=== PATIENT | male | born 1955 | race Caucasian/White ===

== ENCOUNTER 2016-11-10 14:00 | Emergency (ER) | payer BC ==
[~2016-11-10] VITALS: Ht 181.6 cm; Wt 108.4 kg
[~2016-11-10 14:00] MED LIST: ASPEC81 PO; BENA20TA14 PO; CLB200 PO; CLR10 PO; HYDC25 PO; OXYSR10 PO; RXC5 PO
[2016-11-10 14:06] VITALS: TEMP 36.7; Ht 181.6 cm; Wt 108.4 kg
[2016-11-10] MEDS ORDERED: ASPIRIN 81 MG CHEW PO STA (14:17)
--- NOTE | 2016-11-10 14:20 | EMERGENCY ROOM VISIT NOTE ---
History Report prepared by Bernard: Luc Morataya Under the Supervision of: Dr. Satish Treviño M.D. First contact with patient: 14:10 Chief Complaint: CHEST PAIN Stated Complaint: CHEST PAINS, SWEATS, STUFFY FEELING History of Present Illness The patient is a 61 year old male who presents to the Emergency Room with complaints of persistent chest pain that started less than one hour [employer]. The pain came on suddenly when he was getting out of his car. The pain is localized to the center of his chest and does not radiate. The pain is severe and is worsened with movement. He was completely asymptomatic prior to the pain. The patient also complains of diaphoresis and some shortness of breath. He denies recent fevers, headaches, syncope or lightheadedness, nausea, vomiting, blood in his stools, or leg pain. He never had chest pain like this before. He has been keeping up with fluids. The patient denies any history of heart disease or diabetes. He does have history of hypertension and high cholesterol. The patient denies any recent falls or injuries. He is a smoker. He denies any recent illness. Source of History: patient Onset: one hour [employer] Position: chest Symptom Intensity: severe Timing: other (persistent) Modifying Factors (Worsening): movement Associated Symptoms: + SOB, + diaphoresis, No diarrhea, No fevers, No headache, No hematochezia, No vomiting Review of Systems See HPI for pertinent positives & negatives. A total of 10 systems reviewed and were otherwise negative. Past Medical & Surgical Medical Problems: (1) Arthritis of left knee Old medical records were reviewed. Nurse's notes were reviewed and I agree with. Family History No pertinent family history Social History Smoking Status: Current Every Day Smoker Drug Use: none Marital Status: Housing Status: lives with family Current/Historical Medications Scheduled Benazepril (Lotensin), 20 MG PO QAM Fluticasone Propionate (Nasal) (Flonase Allergy Relief), 2 SPRAY DANICA DAILY Hydrochlorothiazide (Hctz), 1 TAB PO DAILY Montelukast Sod (Montelukast Sodium), 10 MG PO DAILY Allergies Coded Allergies: No Known Allergies (Verified , 11/10/16) Physical Exam Vital Signs Date Time Temp Pulse Resp B/P Pulse Ox O2 Delivery O2 Flow Rate FiO2 11/10/16 16:33 73 18 142/91 95 Room Air 11/10/16 15:46 74 18 146/87 95 Room Air 11/10/16 14:20 Room Air 11/10/16 14:06 36.7 100 18 138/90 96 Room Air Physical Exam General: non ill-appearing middle aged male in no acute distress, breathing comfortably on room air. Normal speech HEENT: Normal cephalic atraumatic. Pupils are equal round and reactive to light. Sclera anicteric. Extraocular movements are intact. Oropharynx is pink with moist mucous membranes. No swelling of the mouth lips or tongue. Neck: Supple with a midline trachea. No meningeal signs or stiffness, no JVD or bruits. No Stridor. Chest: Clear to auscultation bilaterally. No wheezes or rhonchi. No increased work of breathing. Mildly reproducibly tender to the lower sternum. Heart: regular rate and rhythm. Abdomen: Soft nontender, nondistended without rebound guarding or rigidity. Extremities: No cyanosis clubbing or edema. No calf tenderness or assymetry Spine/Back. Non tender to palpation. No CVA tenderness Skin: Good turgor without rashes. Neurologic exam: Cranial nerves two through 12 are intact. Motor and sensation are intact and symmetrical throughout. Medical Decision & Procedures ER Provider Diagnostic Interpretation: Radiology results as stated below per my review and radiologist interpretation: CT ANGIOGRAPHY OF THE CHEST, PULMONARY EMBOLUS PROTOCOL CLINICAL HISTORY: Midsternal chest pain. COMPARISON STUDY: Chest radiograph June 11, 2014 and November 10, 2016. TECHNIQUE: Following IV administration of 94 mL of Optiray-320, helical axial images of the chest were obtained utilizing the pulmonary embolus protocol. Maximal intensity projections and sagittal and coronal reformats were viewed on an independent 3D workstation. IV contrast was administered without complication. CT DOSE: 680.19 mGy.cm FINDINGS: No pulmonary emboli are identified although the segmental and subsegmental pulmonary arteries are suboptimally assessed due to respiratory motion. The heart is mildly enlarged. There is no pericardial effusion. There are no enlarged thoracic lymph nodes. Mild groundglass opacities within the lungs are noted. There is mild emphysema. Bony thorax and upper abdomen are unremarkable with the exception of nonvisualization of the left kidney within the upper to mid abdomen. A few suspected hepatic cysts are noted. IMPRESSION: 1. No pulmonary emboli identified although segmental and subsegmental pulmonary arteries suboptimal assessed due to respiratory motion. 2. Mild cardiomegaly. 3. Mild emphysema. 4. Mild ground glass opacities which favor atelectasis. Electronically signed by: Selvin Gates M.D. 11/10/2016 4:01 PM Dictated Date/Time: 11/10/2016 3:52 PM CHEST ONE VIEW PORTABLE CLINICAL HISTORY: Chest pain. COMPARISON STUDY: Chest radiograph June 11, 2014. FINDINGS: An anterior cervical spine fusion is incidentally noted. Lung volumes are normal. There is no consolidation or evidence of pulmonary edema. Cardiac size is at the upper limits of normal. IMPRESSION: No acute cardiopulmonary findings. Electronically signed by: Selvin Gates M.D. 11/10/2016 2:56 PM Dictated Date/Time: 11/10/2016 2:56 PM Laboratory Results 11/10/16 14:31 Red Blood Count 5.12, Mean Corpuscular Volume 93.8, Mean Corpuscular Hemoglobin 32.4, Mean Corpuscular Hemoglobin Concent 34.6, Mean Platelet Volume 11.3, Neutrophils (%) (Auto) 59.7, Lymphocytes (%) (Auto) 31.8, Monocytes (%) (Auto) 7.2, Eosinophils (%) (Auto) 0.8, Basophils (%) (Auto) 0.4, Neutrophils # (Auto) 5.57, Lymphocytes # (Auto) 2.97, Monocytes # (Auto) 0.67, Eosinophils # (Auto) 0.07, Basophils # (Auto) 0.04 11/10/16 14:31 Test 11/10/16 14:31 11/10/16 14:36 White Blood Count 9.33 K/uL (4.8-10.8) Red Blood Count 5.12 M/uL (4.7-6.1) Hemoglobin 16.6 g/dL (14.0-18.0) Hematocrit 48.0 % (42-52) Mean Corpuscular Volume 93.8 fL (80-100) Mean Corpuscular Hemoglobin 32.4 pg (25-34) Mean Corpuscular Hemoglobin Concent 34.6 g/dl (32-36) Platelet Count 183 K/uL (130-400) Mean Platelet Volume 11.3 fL (7.4-10.4) Neutrophils (%) (Auto) 59.7 % Lymphocytes (%) (Auto) 31.8 % Monocytes (%) (Auto) 7.2 % Eosinophils (%) (Auto) 0.8 % Basophils (%) (Auto) 0.4 % Neutrophils # (Auto) 5.57 K/uL (1.4-6.5) Lymphocytes # (Auto) 2.97 K/uL (1.2-3.4) Monocytes # (Auto) 0.67 K/uL (0.11-0.59) Eosinophils # (Auto) 0.07 K/uL (0-0.5) Basophils # (Auto) 0.04 K/uL (0-0.2) RDW Standard Deviation 45.8 fL (36.4-46.3) RDW Coefficient of Variation 13.2 % (11.5-14.5) Immature Granulocyte % (Auto) 0.1 % Immature Granulocyte # (Auto) 0.01 K/uL (0.00-0.02) Anion Gap 7.0 mmol/L (3-11) Est Creatinine Clear Calc Drug Dose 103.1 ml/min Estimated GFR () 99.7 Estimated GFR (Non- 86.1 BUN/Creatinine Ratio 16.8 (10-20) Calcium Level 8.8 mg/dl (8.5-10.1) Total Bilirubin 0.5 mg/dl (0.2-1) Direct Bilirubin 0.2 mg/dl (0-0.2) Aspartate Amino Transf (AST/SGOT) 17 U/L (15-37) Alanine Aminotransferase (ALT/SGPT) 37 U/L (12-78) Alkaline Phosphatase 72 U/L (45-117) Total Creatine Kinase 235 U/L (39-308) Creatine Kinase MB 2.8 ng/ml (0.5-3.6) Creatine Kinase MB Ratio 1.2 (0-3.0) Total Protein 7.0 gm/dl (6.4-8.2) Albumin 4.0 gm/dl (3.4-5.0) Lipase 133 U/L (73-393) Bedside D-Dimer > 450 ng/mlFEU (0-450) Bedside Troponin I 0.000 ng/ml (0-0.045) Laboratory studies as stated above per my review. Medications Administered Medications (Trade) Dose Ordered Sig/Adia Route Start Time Stop Time Status Last Admin Dose Admin Aspirin (Aspirin Chew) 324 mg NOW STAT PO 11/10/16 14:17 11/10/16 14:19 DC 11/10/16 14:38 324 MG ECG Indication: chest pain Rate (beats per minute): 74 Rhythm: normal sinus Findings: PVC (occasional), no acute ischemic change Change: Repeat EKG showed normal sinus at 74, no acute ischemic changes, occasional PVC , no significant change from first EKG. ED Course 1412: Past medical records reviewed. The patient was evaluated in room B3b, and a complete history and physical examination were performed. 1417: Aspirin 324 mg PO. 1555: The patient is resting comfortably. Repeat EKG ordered. 1625: The patient is asymptomatic and would like to go home. I offered admission however he would still like to go home. He will follow up with his primary physician. Medical Decision Differential diagnosis includes acute coronary syndrome, arrhythmia, PE, aortic pathology, musculoskeletal, GI. This patient comes in after an abrupt onset of chest pain when opening a door. It is reproducible pain and movement. IV access established and EKG was obtained. EKG does not suggest acute coronary syndrome or arrhythmias given aspirin 324 mg by mouth. Multiple blood testing was obtained. A second EKG does not show any change compared to the first. He does have some PVCs. He is asymptomatic with these however. He was feeling much better and had no further chest pain. His troponin and CK-MB are normal. His d-dimer was mildly elevated and in light of this. I did do a chest CT does no evidence of PE. He has nothing to suggest congestive heart failure, pneumonia, or pneumothorax. He has no acute electrolyte or metabolic abnormality. This may be musculoskeletal and it is reproducible in one area in the central sternum and is worse with movement and breathing. I went over his results with the patient and his . I told him that I cannot 100% rule out cardiac event and offered to admit him for further workup and rule out but he strongly desires to go home. I think it is reasonable with close follow-up with his doctor this week. I encouraged him use aspirin 324 mg daily and take with food return to ER if: increasing pain, worsening of symptoms, recurrence of systems, any new problems or concerns. He was happy with the plan and discharged to home. Impression Primary Impression: Substernal precordial chest pain Scribe Attestation The scribe's documentation has been prepared under my direction and personally reviewed by me in its entirety. I confirm that the note above accurately reflects all work, treatment, procedures, and medical decision making performed by me. Departure Information Dispostion Home / Self-Care Referrals Lupillo Dugan M.D.(CHARLENE) (PCP) Forms HOME CARE DOCUMENTATION FORM, IMPORTANT VISIT INFORMATION Patient Instructions My [facility] Additional Instructions Rest. Drink plenty of fluids. Use an aspirin 325 mg enteric coated once a day. Follow-up with your doctor on Saturday for recheck. Return to ER over the weekend if: Recurrence of symptoms, worsening symptoms, shortness of breath, fever chills, any new problems or concerns.
[2016-11-10] MEDS ORDERED: HYDR12.56 PO (14:51)
[2016-11-10] MEDS ORDERED: SNG10 PO (14:51)
[2016-11-10] MEDS ORDERED: FLUT0.15 NAE (14:51)
[2016-11-10 14:54] LABS: BASO % 0.4 %; BASO ABS # 0.04 K/uL (0-0.2); COMPLETE YES; EOS % 0.8 %; IG% 0.1 %; LYMPH % 31.8 %; LYMPH ABS # 2.97 K/uL (1.2-3.4); MEAN CELL VOLUME 93.8 fL (80-100); MEAN CORPUSCULAR HEMOGLOBIN 32.4 pg (25-34); MEAN CORPUSCULAR HGB CONC 34.6 g/dl (32-36); MEAN PLATELET VOLUME 11.3 fL (7.4-10.4); MONO % 7.2 %; NEUT % 59.7 %; PLATELET COUNT 183 K/uL (130-400); RED BLOOD COUNT 5.12 M/uL (4.7-6.1); WHITE BLOOD COUNT 9.33 K/uL (4.8-10.8)
--- NOTE | 2016-11-10 14:58 | DIAGNOSTIC IMAGING REPORT ---
CHEST ONE VIEW PORTABLE CLINICAL HISTORY: Chest pain. COMPARISON STUDY: Chest radiograph June 11, 2014. FINDINGS: An anterior cervical spine fusion is incidentally noted. Lung volumes are normal. There is no consolidation or evidence of pulmonary edema. Cardiac size is at the upper limits of normal. IMPRESSION: No acute cardiopulmonary findings. Electronically signed by: Selvin Gates M.D. 11/10/2016 2:56 PM Dictated Date/Time: 11/10/2016 2:56 PM
[2016-11-10 15:01] LABS: BUN/CREATININE RATIO 16.8 (10-20); CALCIUM 8.8 mg/dl (8.5-10.1); CREATININE 0.95 mg/dl (0.60-1.40); POTASSIUM 3.9 mmol/L (3.5-5.1)
[2016-11-10 15:06] LABS: CKMB/CK RATIO 1.2 (0-3.0)
[2016-11-10] MEDS ORDERED: OPTIRAY 320 IV PRN (15:15)
--- NOTE | 2016-11-10 16:02 | DIAGNOSTIC IMAGING REPORT ---
CT ANGIOGRAPHY OF THE CHEST, PULMONARY EMBOLUS PROTOCOL CLINICAL HISTORY: Midsternal chest pain. COMPARISON STUDY: Chest radiograph June 11, 2014 and November 10, 2016. TECHNIQUE: Following IV administration of 94 mL of Optiray-320, helical axial images of the chest were obtained utilizing the pulmonary embolus protocol. Maximal intensity projections and sagittal and coronal reformats were viewed on an independent 3D workstation. IV contrast was administered without complication. CT DOSE: 680.19 mGy.cm FINDINGS: No pulmonary emboli are identified although the segmental and subsegmental pulmonary arteries are suboptimally assessed due to respiratory motion. The heart is mildly enlarged. There is no pericardial effusion. There are no enlarged thoracic lymph nodes. Mild groundglass opacities within the lungs are noted. There is mild emphysema. Bony thorax and upper abdomen are unremarkable with the exception of nonvisualization of the left kidney within the upper to mid abdomen. A few suspected hepatic cysts are noted. IMPRESSION: 1. No pulmonary emboli identified although segmental and subsegmental pulmonary arteries suboptimal assessed due to respiratory motion. 2. Mild cardiomegaly. 3. Mild emphysema. 4. Mild ground glass opacities which favor atelectasis. Electronically signed by: Selvin Gates M.D. 11/10/2016 4:01 PM Dictated Date/Time: 11/10/2016 3:52 PM
[2016-11-10 16:33] VITALS: BP 142/91; PULSE 73; O2SAT 95
[2017-04-16] MEDS ORDERED: ACET500T57 PO (14:54)
== END 2016-11-10 16:34 | disposition home or self-care (01) ==
LOC: C.EDB 14:02
DX: R07.2 Precordial pain (principal); I10 Essential (primary) hypertension; E78.00 Pure hypercholesterolemia, unspecified; F17.210 Nicotine dependence, cigarettes, uncomplicated; Z79.899 Other long term (current) drug therapy

== ENCOUNTER 2017-04-15 19:46 | Inpatient (IN) | payer BC ==
[~2017-04-15] VITALS: Ht 182.9 cm; Wt 106.0 kg
[~2017-04-15 19:46] MED LIST changes: -ASPEC81 PO; -CLB200 PO; -CLR10 PO; +FLUT0.15 NAE; -HYDC25 PO; +HYDR12.56 PO; -OXYSR10 PO; -RXC5 PO; +SNG10 PO
[2017-04-15] MEDS ORDERED: MoRPHine SULFATE 4 MG/ML 1 ML CARP\\VIAL IV PRN (20:00)
[2017-04-15] MEDS ORDERED: SODIUM CHLORIDE 0.9% 1000ML 1,000 ML IV STA (20:00)
[2017-04-15] MEDS ORDERED: KETOROLAC TROMETHAMINE 30 MG/ML VIAL IV STA (20:00)
[2017-04-15] MEDS ORDERED: SODIUM CHLORIDE 0.9% 1000ML 500 ML IV STA (20:00)
[2017-04-15] MEDS ORDERED: ONDANSETRON INJ 2 MG/ML 2 ML VIAL IV STA (20:00)
--- NOTE | 2017-04-15 20:11 | EMERGENCY ROOM VISIT NOTE ---
History Report prepared by Bernard: Raul Giraldo Under the Supervision of: Dr. Mejia Espinal M.D. First contact with patient: 19:54 Chief Complaint: FEVER Stated Complaint: FEVER, STOMACH PAIN History of Present Illness The patient is a 62 year old male who presents to the Emergency Room with complaints of worsening upper abdominal pain for the past week. The patient states that he felt fine when he woke up this morning, and it severely worsened around 1000. He currently rates his discomfort as an 8/10 in severity. The patient additionally states that he is having urinary frequency, fever, and right sided back pain after moving earlier and pulling his muscle. He states that he currently feels bloated. The patient denies any nausea, vomiting, diarrhea, or history of diverticulitis. The patient states that eating makes the pain worse, and he states that he has never had pain like this before. He states that he takes blood pressure medication, though he does not take any blood thinners. The patient states that the only abdominal surgery he has had is a hernia repair. Source of History: patient Onset: a week ago Position: abdomen Symptom Intensity: 8/10 Timing: worsening Associated Symptoms: + fevers, + back pain, + urinary symptoms, No nausea, No vomiting, No diarrhea Review of Systems See HPI for pertinent positives & negatives. A total of 10 systems reviewed and were otherwise negative. Past Medical & Surgical Medical Problems: (1) Arthritis of left knee Family History No pertinent family history Social History Smoking Status: Current Every Day Smoker Drug Use: none Marital Status: Housing Status: lives with family Current/Historical Medications Scheduled Benazepril (Lotensin), 20 MG PO QAM Hydrochlorothiazide (Hctz), 1 TAB PO DAILY Montelukast Sod (Montelukast Sodium), 10 MG PO DAILY Scheduled PRN Ibuprofen (Advil), 200-600 MG PO Q4H PRN for Pain or Fever Allergies Coded Allergies: No Known Allergies (Verified , 04/15/17) Physical Exam Vital Signs Date Time Temp Pulse Resp B/P (MAP) Pulse Ox O2 Delivery O2 Flow Rate FiO2 04/15/17 21:55 86 20 157/86 96 Room Air 04/15/17 19:47 37.0 95 20 165/108 94 Room Air Physical Exam GENERAL: Patient is in no acute distress. HEENT: No acute trauma, normocephalic atraumatic, mucous membranes moist, no nasal congestion, no scleral icterus. NECK: No stridor, no adenopathy, no meningismus, trachea is midline. LUNGS: Clear to auscultation bilaterally, no wheeze, no rhonchi, breath sounds equal. HEART: Without murmurs gallops or rubs, regular rate and rhythm. ABDOMEN: Tenderness along the entire right side mostly in the right lower quadrant. Mildly tender in the left lower quadrant. Soft, bowel sounds positive , no hernias, no peritonitis. EXTREMITIES: No cyanosis or edema, full range of motion of all the joints without pain or difficulty, no signs for acute trauma. NEUROLOGIC: Oriented x 3, no acute motor or sensory deficits, no focal weakness. SKIN: No rash, no jaundice, no diaphoresis. Medical Decision & Procedures ER Provider Diagnostic Interpretation: Radiology results as stated below per my review and radiologist interpretation: CHEST ONE VIEW PORTABLE HISTORY: 62 years-old Male ABDOMINAL PAIN/GI acute generalized abdominal pain with fever. COMPARISON: Chest radiograph 11/10/2016 TECHNIQUE: Portable upright AP view of the chest FINDINGS: Calcific granuloma of the right midlung is again seen. Cardiac silhouette is upper limits of normal. There is atherosclerosis of the aorta without pneumothorax or pleural effusion. Subsegmental linear left basilar opacity is noted with mild blunting of left costophrenic angle. No pneumothorax. Fusion hardware the lower cervical spine is noted. IMPRESSION: Subsegmental left basilar opacity with blunting of the costophrenic angle suggests atelectasis or pneumonia, possibly with trace effusion. The above report was generated using voice recognition software. It may contain grammatical, syntax or spelling errors. Electronically signed by: James Manzo M.D. 04/15/2017 8:30 PM Dictated Date/Time: 04/15/2017 8:29 PM ABD/PELVIS IV AND ORAL CONT HISTORY: 62 years-old Male ABDOMINAL PAIN/GI--?APPY--GIVE PO AND IV CONTRAST acute generalized abdominal pain. Initial exam. COMPARISON: CTA chest 11/10/2016 TECHNIQUE: Multiple axial CT images of the abdomen and pelvis were obtained following the intravenous administration of 92 mL Optiray 320. Oral contrast was also used. A dose lowering technique was used consistent with the principals of MORGAN. FINDINGS: Mild dependent bibasilar opacities suggest atelectasis. No pneumoperitoneum. Imaged inferior cardiac chambers are unremarkable. Low attenuating 2.3 cm circumscribed lesion of the left hepatic lobe suggests cysts with additional scattered similar appearing subcentimeter lesions too small to characterize however also likely reflecting cysts. The spleen and gallbladder are unremarkable. Moderate interstitial edema involves the pancreas, notably within the region of the pancreatic head and neck with mild surrounding stranding seen within the anterior perirenal space which tracks along the duodenum. Mild wall thickening of the proximal duodenum is seen, likely reactive. No associated focal fluid collections. No biliary ductal dilation or focal mass. Bilateral adrenal glands are unremarkable. Right kidney is unremarkable. There is mild stranding surrounding the distal right ureter which is mildly dilated without obstructing stone or mass. Prostate is enlarged. Urinary bladder is within normal limits. Left inguinal hernia is seen. Left kidney is noted within a midline pelvic location with left ureter inserting normally the urinary bladder. There is moderate atherosclerotic plaquing of the abdominal aorta. Fusiform dilation involves the bilateral external iliac arteries, 2.0 cm in the low right and 2.4 cm on the left. Mild luba hepatis adenopathy is seen measuring up to 3.4 x 1.4 cm. Mildly prominent gastrohepatic lymph nodes are also seen measuring up to 1.1 cm. There is no bowel obstruction. The appendix appears normal. Soft tissues are unremarkable. Bones are intact. Intervertebral disc space narrowing noted at L4-L5 and L5-S1. IMPRESSION: 1. Findings compatible with mild acute interstitial edematous pancreatitis. There is mild associated edema within the anterior pararenal space without associated focal fluid collection. Correlate with lipase level. 2. No biliary ductal dilation. 3. 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 4. Mild dilation of the distal right ureter with surrounding inflammatory stranding is nonspecific and may reflect ascending ureteritis. Correlate with urinalysis. 5. Prostamegaly. 6. Normal appendix. The above report was generated using voice recognition software. It may contain grammatical, syntax or spelling errors. Electronically signed by: James Manzo M.D. 04/15/2017 10:36 PM Dictated Date/Time: 04/15/2017 10:26 PM Laboratory Results 04/15/17 20:30 Red Blood Count 5.15, Mean Corpuscular Volume 91.8, Mean Corpuscular Hemoglobin 31.1, Mean Corpuscular Hemoglobin Concent 33.8, Mean Platelet Volume 10.9, Neutrophils (%) (Auto) 70.0, Lymphocytes (%) (Auto) 20.6, Monocytes (%) (Auto) 6.4, Eosinophils (%) (Auto) 2.4, Basophils (%) (Auto) 0.3, Neutrophils # (Auto) 7.19, Lymphocytes # (Auto) 2.12, Monocytes # (Auto) 0.66, Eosinophils # (Auto) 0.25, Basophils # (Auto) 0.03 04/15/17 20:30 Test 04/15/17 20:30 04/15/17 21:55 White Blood Count 10.28 K/uL (4.8-10.8) Red Blood Count 5.15 M/uL (4.7-6.1) Hemoglobin 16.0 g/dL (14.0-18.0) Hematocrit 47.3 % (42-52) Mean Corpuscular Volume 91.8 fL (80-100) Mean Corpuscular Hemoglobin 31.1 pg (25-34) Mean Corpuscular Hemoglobin Concent 33.8 g/dl (32-36) Platelet Count 166 K/uL (130-400) Mean Platelet Volume 10.9 fL (7.4-10.4) Neutrophils (%) (Auto) 70.0 % Lymphocytes (%) (Auto) 20.6 % Monocytes (%) (Auto) 6.4 % Eosinophils (%) (Auto) 2.4 % Basophils (%) (Auto) 0.3 % Neutrophils # (Auto) 7.19 K/uL (1.4-6.5) Lymphocytes # (Auto) 2.12 K/uL (1.2-3.4) Monocytes # (Auto) 0.66 K/uL (0.11-0.59) Eosinophils # (Auto) 0.25 K/uL (0-0.5) Basophils # (Auto) 0.03 K/uL (0-0.2) RDW Standard Deviation 44.9 fL (36.4-46.3) RDW Coefficient of Variation 13.4 % (11.5-14.5) Immature Granulocyte % (Auto) 0.3 % Immature Granulocyte # (Auto) 0.03 K/uL (0.00-0.02) Prothrombin Time 10.0 SECONDS (9.0-12.0) Prothromb Time International Ratio 0.9 (0.9-1.1) Activated Partial Thromboplast Time 26.2 SECONDS (21.0-31.0) Partial Thromboplastin Ratio 1.0 Anion Gap 6.0 mmol/L (3-11) Est Creatinine Clear Calc Drug Dose 108.2 ml/min Estimated GFR () 106.2 Estimated GFR (Non- 91.6 BUN/Creatinine Ratio 17.3 (10-20) Calcium Level 9.5 mg/dl (8.5-10.1) Total Bilirubin 0.2 mg/dl (0.2-1) Aspartate Amino Transf (AST/SGOT) 14 U/L (15-37) Alanine Aminotransferase (ALT/SGPT) 21 U/L (12-78) Alkaline Phosphatase 70 U/L (45-117) Total Protein 6.6 gm/dl (6.4-8.2) Albumin 3.5 gm/dl (3.4-5.0) Globulin 3.1 gm/dl (2.5-4.0) Albumin/Globulin Ratio 1.1 (0.9-2) Lipase 4046 U/L (73-393) Urine Color YELLOW Urine Appearance CLEAR (CLEAR) Urine pH 7.5 (4.5-7.5) Urine Specific [place] 1.013 (1.000-1.030) Urine Protein NEG (NEG) Urine Glucose (UA) NEG (NEG) Urine Ketones NEG (NEG) Urine Occult Blood NEG (NEG) Urine Nitrite NEG (NEG) Urine Bilirubin NEG (NEG) Urine Urobilinogen NEG (NEG) Urine Leukocyte Esterase NEG (NEG) Laboratory results reviewed by me. Medications Administered Medications (Trade) Dose Ordered Sig/Adia Route Start Time Stop Time Status Last Admin Dose Admin Sodium Chloride 500 ml @ 999 mls/hr Q31M STAT IV 04/15/17 20:00 04/15/17 20:30 DC 04/15/17 20:36 999 MLS/HR Ondansetron HCl (Zofran Inj) 4 mg NOW STAT IV 04/15/17 20:00 04/15/17 20:02 DC 04/15/17 20:36 4 MG Sodium Chloride 1,000 ml @ 125 mls/hr Q8H STAT IV 04/15/17 20:00 04/16/17 03:59 04/15/17 20:36 125 MLS/HR Morphine Sulfate (MoRPHine SULFATE INJ) 4 mg Q30M PRN IV 04/15/17 20:00 04/29/17 19:59 04/15/17 20:39 4 MG Ketorolac Tromethamine (Toradol Inj) 30 mg NOW STAT IV 04/15/17 20:00 04/15/17 20:02 DC 04/15/17 20:36 30 MG Nicotine (Nicoderm Cq 21MG Patch) 1 patch NOW STAT EXT 04/15/17 22:52 04/15/17 22:53 DC 04/15/17 23:10 1 PATCH ED Course 1953: The patient was evaluated in room A10. A complete history and physical exam was performed. 1999: Toradol Inj 30mg IV, Morphine Sulfate 4mg IV, Sodium Chloride 1000 ml @ 125 mls/hr IV, Zofran Inj 4mg IV, Sodium Chloride 500 ml @ 999 mls/hr IV 2251: I reevaluated the patient, and he admitted to heavy alcohol use. Also, I ordered Nicotine 1 Patch EXT 2256: Discussed the patient's case with Dr. Mcintyre. The patient will be evaluated for further management. Medical Decision Differential Diagnoses include: appendicitis, diverticulitis, pancreatitis, biliary colic, acute cholecystitis, UTI, viral illness, urinary infection, hernia, musculoskeletal pain. There is no leukocytosis or concerning anemia. No significant electrolyte abnormality, no kidney failure. There is no hepatitis. There is elevation to the lipase consistent with pancreatitis. Urinalysis does not show infection or hematuria. Chest x-ray does not show free air. There is some left base atelectasis. No pneumothorax. There is no coagulopathy. Abdominal and pelvis CT shows pancreatitis. The appendix was normal. There was some inflammation about the right kidney of unknown significance. The patient received IV saline, he received IV morphine, IV Toradol and IV Zofran. He was given a Nicotine patch. Patient is resting comfortably. I discussed my findings with him. I talked with case management. Admission/observation is warranted. The on-call hospitalist was consulted. Of note, the patient did admit to me that he drinks alcohol heavily, this is likely the cause of his pancreatitis. Medication Reconcilliation Current Medication List: was personally reviewed by me Blood Pressure Screening Patient's blood pressure: Elevated blood pressure Monitored by the hospitalist Consults Time Called: 2251 Consulting Physician: Dr. Mcintyre Returned Call: [phone] Discussed the patient's case with Dr. Mcintyre. The patient will be evaluated for further management. Impression Primary Impression: Pancreatitis Scribe Attestation The scribe's documentation has been prepared under my direction and personally reviewed by me in its entirety. I confirm that the note above accurately reflects all work, treatment, procedures, and medical decision making performed by me. Departure Information Dispostion Being Evaluated By Hospitalist Referrals No Doctor, Assigned (PCP) Patient Instructions My [facility]
[2017-04-15] MEDS ORDERED: OPTIRAY 320 IV PRN (20:15)
[2017-04-15] MEDS ORDERED: IBUP-1050 PO (20:23)
--- NOTE | 2017-04-15 20:31 | DIAGNOSTIC IMAGING REPORT ---
CHEST ONE VIEW PORTABLE HISTORY: 62 years-old Male ABDOMINAL PAIN/GI acute generalized abdominal pain with fever. COMPARISON: Chest radiograph 11/10/2016 TECHNIQUE: Portable upright AP view of the chest FINDINGS: Calcific granuloma of the right midlung is again seen. Cardiac silhouette is upper limits of normal. There is atherosclerosis of the aorta without pneumothorax or pleural effusion. Subsegmental linear left basilar opacity is noted with mild blunting of left costophrenic angle. No pneumothorax. Fusion hardware the lower cervical spine is noted. IMPRESSION: Subsegmental left basilar opacity with blunting of the costophrenic angle suggests atelectasis or pneumonia, possibly with trace effusion. The above report was generated using voice recognition software. It may contain grammatical, syntax or spelling errors. Electronically signed by: James Manzo M.D. 04/15/2017 8:30 PM Dictated Date/Time: 04/15/2017 8:29 PM
[2017-04-15 20:48] LABS: BASO % 0.3 %; BASO ABS # 0.03 K/uL (0-0.2); COMPLETE YES; EOS % 2.4 %; HEMATOCRIT 47.3 % (42-52); IG% 0.3 %; LYMPH % 20.6 %; LYMPH ABS # 2.12 K/uL (1.2-3.4); MEAN CELL VOLUME 91.8 fL (80-100); MEAN CORPUSCULAR HEMOGLOBIN 31.1 pg (25-34); MEAN CORPUSCULAR HGB CONC 33.8 g/dl (32-36); MEAN PLATELET VOLUME 10.9 fL (7.4-10.4); MONO % 6.4 %; PLATELET COUNT 166 K/uL (130-400); RED BLOOD COUNT 5.15 M/uL (4.7-6.1); WHITE BLOOD COUNT 10.28 K/uL (4.8-10.8)
[2017-04-15 20:58] LABS: INR 0.9 (0.9-1.1)
[2017-04-15 21:04] LABS: BUN/CREATININE RATIO 17.3 (10-20); CALCIUM 9.5 mg/dl (8.5-10.1); CREATININE 0.89 mg/dl (0.60-1.40); POTASSIUM 3.8 mmol/L (3.5-5.1)
[2017-04-15 21:07] LABS: ALB/GLOB RATIO 1.1 (0.9-2)
[2017-04-15 22:02] LABS: URINE APPEARANCE CLEAR (CLEAR); URINE BILIRUBIN NEG (NEG); URINE COLOR YELLOW; URINE NITRITE NEG (NEG); URINE PH 7.5 (4.5-7.5); URINE SPECIFIC GRAVITY 1.013 (1.000-1.030); UROBILINOGEN NEG (NEG); ZZUR CULT IF INDIC CLEAN CATCH NO
[2017-04-15 22:05] LABS: MANUAL MICROSCOPIC REQUIRED? NO; REVIEW REQ? NO
--- NOTE | 2017-04-15 22:37 | DIAGNOSTIC IMAGING REPORT ---
ABD/PELVIS IV AND ORAL CONT HISTORY: 62 years-old Male ABDOMINAL PAIN/GI--?APPY--GIVE PO AND IV CONTRAST acute generalized abdominal pain. Initial exam. COMPARISON: CTA chest 11/10/2016 TECHNIQUE: Multiple axial CT images of the abdomen and pelvis were obtained following the intravenous administration of 92 mL Optiray 320. Oral contrast was also used. A dose lowering technique was used consistent with the principals of MORGAN. FINDINGS: Mild dependent bibasilar opacities suggest atelectasis. No pneumoperitoneum. Imaged inferior cardiac chambers are unremarkable. Low attenuating 2.3 cm circumscribed lesion of the left hepatic lobe suggests cysts with additional scattered similar appearing subcentimeter lesions too small to characterize however also likely reflecting cysts. The spleen and gallbladder are unremarkable. Moderate interstitial edema involves the pancreas, notably within the region of the pancreatic head and neck with mild surrounding stranding seen within the anterior perirenal space which tracks along the duodenum. Mild wall thickening of the proximal duodenum is seen, likely reactive. No associated focal fluid collections. No biliary ductal dilation or focal mass. Bilateral adrenal glands are unremarkable. Right kidney is unremarkable. There is mild stranding surrounding the distal right ureter which is mildly dilated without obstructing stone or mass. Prostate is enlarged. Urinary bladder is within normal limits. Left inguinal hernia is seen. Left kidney is noted within a midline pelvic location with left ureter inserting normally the urinary bladder. There is moderate atherosclerotic plaquing of the abdominal aorta. Fusiform dilation involves the bilateral external iliac arteries, 2.0 cm in the low right and 2.4 cm on the left. Mild luba hepatis adenopathy is seen measuring up to 3.4 x 1.4 cm. Mildly prominent gastrohepatic lymph nodes are also seen measuring up to 1.1 cm. There is no bowel obstruction. The appendix appears normal. Soft tissues are unremarkable. Bones are intact. Intervertebral disc space narrowing noted at L4-L5 and L5-S1. IMPRESSION: 1. Findings compatible with mild acute interstitial edematous pancreatitis. There is mild associated edema within the anterior pararenal space without associated focal fluid collection. Correlate with lipase level. 2. No biliary ductal dilation. 3. 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 4. Mild dilation of the distal right ureter with surrounding inflammatory stranding is nonspecific and may reflect ascending ureteritis. Correlate with urinalysis. 5. Prostamegaly. 6. Normal appendix. The above report was generated using voice recognition software. It may contain grammatical, syntax or spelling errors. Electronically signed by: James Manzo M.D. 04/15/2017 10:36 PM Dictated Date/Time: 04/15/2017 10:26 PM
[2017-04-15] MEDS ORDERED: NICOTINE 21 MG/24 HR TDSY EXT STA (22:52)
[2017-04-15 23:32] LABS: MAGNESIUM 2.3 mg/dl (1.8-2.4)
[2017-04-16] MEDS ORDERED: LORAZEPAM 2 MG/ML 1 ML VIAL IV PRN (01:00)
[2017-04-16] MEDS ORDERED: ONDANSETRON INJ 2 MG/ML 2 ML VIAL IV PRN (01:00)
[2017-04-16] MEDS ORDERED: MoRPHine SULFATE 4 MG/ML 1 ML CARP\\VIAL IV PRN (01:00)
[2017-04-16] MEDS ORDERED: THIAMINE HCL INJ 100 MG in SYRINGE 9 ML IV STA (01:04)
[2017-04-16] MEDS ORDERED: GABAPENTIN 600 MG TAB PO STA (01:36)
[2017-04-16] MEDS: LACTATED RINGER'S 1000ML 1,000 ML IV SCH ×4 (01:50→14:38)
[2017-04-16 02:10] VITALS: BP 146/81; PULSE 71; TEMP 36.7; O2SAT 93; Ht 182.9 cm; Wt 106.0 kg
[2017-04-16] MEDS: OXYCODONE/ACETAMINOPHEN 5-325 TAB PO PRN ×2 (02:12→11:13)
--- NOTE | 2017-04-16 03:58 | HISTORY & PHYSICAL EXAMINATION ---
DATE OF ADMISSION: 04/16/2017 PRIMARY CARE PHYSICIAN: Dr. Dugan. CHIEF COMPLAINT: Abdominal pain. HISTORY OF PRESENT ILLNESS: History obtained from patient and records. Significant for hypertension, ongoing tobacco abuse, arthritis. Recent confinement last July 2015 under Orthopedic service for the left knee surgery. One week history of epigastric discomfort, achy. No radiation, no nausea, no vomiting. Patient is urinating a lot. Admits to daily alcohol intake. dmits that sometimes his drinking can be excessive. No history of EtOH withdrawal in the past as per patient. MEDICAL HISTORY: As above. SURGERIES: Orthopedic procedures, carpal tunnel surgery, hernia surgery, ear surgery, sinus surgery, and knee surgery. HOME MEDICATIONS: Include, celecoxib, fluticasone, benazepril, ALLERGIES: TO PAROXETINE. FAMILY HISTORY: Diabetes. PERSONAL AND SOCIAL HISTORY: A pack daily. Daily alcohol intake beverage, sometimes it is excessive. 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 REVIEW OF SYSTEMS: As per HPI, all other ROS negative. PHYSICAL EXAMINATION: VITAL SIGNS: Blood pressure was noted to be 165/90, later 140/82, pulse is 70, RR 18, T 37 sats 93 on room air. GENERAL: Noted to be obese, slightly uncomfortable, in no acute respiratory distress. SKIN: Normal color. HEENT: [place] palpebral conjunctivae. Dry mucosa. NECK: Short neck. CHEST: Clear to auscultation. ABDOMEN: Some distention. No overt tenderness. EXTREMITIES: No edema. No tenderness NEUROLOGIC: No gross focality. LABORATORY DATA: Hemoglobin was noted to be 16, hematocrit 47.2, white cell count 11, platelets 166. Sodium 136, potassium 4.8, chloride 101, CO2 30, BUN 15, creatinine 0.8, glucose of 174. Lipase was 4046. IMAGING DATA: CT abdomen and pelvis showed interstitial edematous pancreatitis without associated focal fluid collection, no biliary ductal dilatation, prostatomegaly, normal appearing appendix. Chest x-ray, atelectasis. UA normal ASSESSMENT: 1. Acute pancreatitis likely secondary to alcohol abuse. 2. Hypertension, slightly elevated. 3. Ongoing tobacco abuse. 4. Hyperglycemia, rule out diabetes. PLAN: GMF Follow lipase, IV fluids, Analgesia, bowel rest. GI consult RE pancreatitis. DT precautions. Nicotine patch. Check hemoglobin A1c. DVT prophylaxis, Lovenox subQ. Full code. MTDD
[2017-04-16 05:00] VITALS: BP 150/100; PULSE 64; TEMP 36.5; O2SAT 91
[2017-04-16 06:29] LABS: ESTIMATED AVERAGE GLUCOSE 128 mg/dl; HA1C FLAG Normal (Normal)
[2017-04-16 07:03] VITALS: BP 164/106; PULSE 64; TEMP 36.6; O2SAT 94
[2017-04-16 07:11] LABS: BASO % 0.3 %; BASO ABS # 0.03 K/uL (0-0.2); COMPLETE YES; EOS % 2.7 %; HEMATOCRIT 45.2 % (42-52); IG% 0.3 %; LYMPH ABS # 2.33 K/uL (1.2-3.4); MEAN CELL VOLUME 91.7 fL (80-100); MEAN CORPUSCULAR HEMOGLOBIN 31.2 pg (25-34); MEAN CORPUSCULAR HGB CONC 34.1 g/dl (32-36); MEAN PLATELET VOLUME 10.6 fL (7.4-10.4); MONO % 7.7 %; PLATELET COUNT 141 K/uL (130-400); RED BLOOD COUNT 4.93 M/uL (4.7-6.1); WHITE BLOOD COUNT 8.95 K/uL (4.8-10.8)
--- NOTE | 2017-04-16 07:11 | DIAGNOSTIC IMAGING REPORT ---
ABDOMINAL ULTRASOUND, RIGHT UPPER QUADRANT HISTORY: Generalized abdominal pain.. COMPARISON: Abdomen and pelvis CT 04/15/2017. FINDINGS: Pancreas: Obscured by overlying bowel gas. Liver: A 2.5 cm septated cyst within the left hepatic lobe. The liver is echogenic consistent with fatty change. The liver is mildly enlarged measuring 21 cm in length. Gallbladder: No gallbladder wall thickening. No gallstones. The gallbladder is contracted. CBD: 4 mm. Right kidney: No hydronephrosis. IMPRESSION: 1. The pancreas is obscured by overlying bowel gas. 2. Hepatomegaly demonstrating fatty change. 3. A 2.5 cm septated cyst within the left hepatic lobe. 4. No gallbladder wall thickening. No gallstones. Electronically signed by: Familia Santillan M.D. 04/16/2017 7:10 AM Dictated Date/Time: 04/16/2017 7:08 AM
[2017-04-16] MEDS: GABAPENTIN 600MG Q6H DOSE PO SCH ×2 (07:38→14:38)
[2017-04-16 07:46] LABS: BUN/CREATININE RATIO 15.7 (10-20); CALCIUM 9.4 mg/dl (8.5-10.1); CREATININE 0.79 mg/dl (0.60-1.40); POTASSIUM 3.8 mmol/L (3.5-5.1)
[2017-04-16 07:49] LABS: ALB/GLOB RATIO 1.1 (0.9-2)
[2017-04-16] MEDS ORDERED: MULTIVITAMIN TAB PO SCH (08:00)
[2017-04-16] MEDS ORDERED: ENALAPRIL MALEATE 10 MG TAB PO SCH (08:00)
[2017-04-16] MEDS ORDERED: MONTELUKAST SOD 10 MG TAB PO SCH (08:00)
[2017-04-16] MEDS ORDERED: NICOTINE 21 MG/24 HR TDSY TD SCH (08:00)
[2017-04-16] MEDS ORDERED: ENOXAPARIN 40 MG/0.4 ML SYR SQ SCH (09:00)
[2017-04-16] MEDS ORDERED: ONDANSETRON 4MG OD TAB PO PRN (10:45)
--- NOTE | 2017-04-16 11:03 | Progress Note ---
Medicine Progress Note Date & Time of Visit: Apr 16, 2017 at 9:46. Subjective patient examined sitting up, breathing in room air, no acute distress, cooperative on exam, was also able to ambulate from bed to bathroom without assistance, no acute complaints, has been able to drink water and chew on ice cubes without vomiting Objective Last 8 Hrs Date Time Temp Pulse Resp B/P (MAP) Pulse Ox O2 Delivery O2 Flow Rate FiO2 04/16/17 08:00 Room Air 04/16/17 07:03 36.6 64 18 164/106 (125) 94 Room Air 04/16/17 05:00 36.5 64 18 150/100 (117) 91 Room Air Physical Exam: General-no acute distress, speaking comfortably on room air, ambulatory without assistance Eyes-extraocular movements intact, no jaundice, no changes in vision ENT-no oral or nasal exudates, no tongue fasciculations Neck- supple, no JVD Lungs- clear to auscultation bilaterally, no accessory muscle used Heart- regular rate and rhythm Abdomen- truncal obesity, nontender to palpation, + bowel sounds Extremities- strength 5/5 throughout, no tremors Neuro- AO x 3, no focal neurological deficits Laboratory Results: Last 24 Hours Test 04/15/17 20:30 04/15/17 21:55 04/16/17 06:45 White Blood Count 10.28 K/uL 8.95 K/uL Red Blood Count 5.15 M/uL 4.93 M/uL Hemoglobin 16.0 g/dL 15.4 g/dL Hematocrit 47.3 % 45.2 % Mean Corpuscular Volume 91.8 fL 91.7 fL Mean Corpuscular Hemoglobin 31.1 pg 31.2 pg Mean Corpuscular Hemoglobin Concent 33.8 g/dl 34.1 g/dl Platelet Count 166 K/uL 141 K/uL Mean Platelet Volume 10.9 fL 10.6 fL Neutrophils (%) (Auto) 70.0 % 63.0 % Lymphocytes (%) (Auto) 20.6 % 26.0 % Monocytes (%) (Auto) 6.4 % 7.7 % Eosinophils (%) (Auto) 2.4 % 2.7 % Basophils (%) (Auto) 0.3 % 0.3 % Neutrophils # (Auto) 7.19 K/uL 5.63 K/uL Lymphocytes # (Auto) 2.12 K/uL 2.33 K/uL Monocytes # (Auto) 0.66 K/uL 0.69 K/uL Eosinophils # (Auto) 0.25 K/uL 0.24 K/uL Basophils # (Auto) 0.03 K/uL 0.03 K/uL RDW Standard Deviation 44.9 fL 45.4 fL RDW Coefficient of Variation 13.4 % 13.6 % Immature Granulocyte % (Auto) 0.3 % 0.3 % Immature Granulocyte # (Auto) 0.03 K/uL 0.03 K/uL Prothrombin Time 10.0 SECONDS Prothromb Time International Ratio 0.9 Activated Partial Thromboplast Time 26.2 SECONDS Partial Thromboplastin Ratio 1.0 Sodium Level 137 mmol/L 140 mmol/L Potassium Level 3.8 mmol/L 3.8 mmol/L Chloride Level 101 mmol/L 104 mmol/L Carbon Dioxide Level 30 mmol/L 32 mmol/L Anion Gap 6.0 mmol/L 4.0 mmol/L Blood Urea Nitrogen 15 mg/dl 12 mg/dl Creatinine 0.89 mg/dl 0.79 mg/dl Est Creatinine Clear Calc Drug Dose 108.2 ml/min 122.0 ml/min Estimated GFR () 106.2 111.5 Estimated GFR (Non- 91.6 96.2 BUN/Creatinine Ratio 17.3 15.7 Random Glucose 174 mg/dl 97 mg/dl Estimated Average Glucose 128 mg/dl Hemoglobin A1c 6.1 % Calcium Level 9.5 mg/dl 9.4 mg/dl Magnesium Level 2.3 mg/dl Total Bilirubin 0.2 mg/dl 0.4 mg/dl Aspartate Amino Transf (AST/SGOT) 14 U/L 10 U/L Alanine Aminotransferase (ALT/SGPT) 21 U/L 19 U/L Alkaline Phosphatase 70 U/L 62 U/L Total Protein 6.6 gm/dl 6.3 gm/dl Albumin 3.5 gm/dl 3.3 gm/dl Globulin 3.1 gm/dl 3.0 gm/dl Albumin/Globulin Ratio 1.1 1.1 Lipase 4046 U/L 1760 U/L Urine Color YELLOW Urine Appearance CLEAR Urine pH 7.5 Urine Specific [place] 1.013 Urine Protein NEG Urine Glucose (UA) NEG Urine Ketones NEG Urine Occult Blood NEG Urine Nitrite NEG Urine Bilirubin NEG Urine Urobilinogen NEG Urine Leukocyte Esterase NEG Ethyl Alcohol mg/dL < 3.0 mg/dl Diagnostic Imaging: Ultrasound Gallbladder 1. The pancreas is obscured by overlying bowel gas. 2. Hepatomegaly demonstrating fatty change. 3. A 2.5 cm septated cyst within the left hepatic lobe. 4. No gallbladder wall thickening. No gallstones. Electronically signed by: Familia Santillan M.D. 04/16/2017 7:10 AM Dictated Date/Time: 04/16/2017 7:08 AM Assessment & Plan (1) Pancreatitis diagnosis of acute pancreatitis on imaging, and elevated lipase -lipase and wbc downtrending -patient afebrile -gallbladder ultrasound without evidence for gallstones -possibly etiology of pancreatitis from resolved gallstone vs etoh use -patient doing well overnight on pain medications, antiemetics and IV hydration , and able to drink water and swallow ice chips without exacerbating abdominal discomfort or have any vomiting -will advance diet to solid low fat diet, IV pain medications and antiemetics switched to PO -possible that patient may bed discharged later today if he is able to tolerate diet (2) Hypertension -patient on NIYAH inhibitor since admission -upon discharge, patient to continue home medication of benazepril -will restart patient back on home medication of HCTZ (3) Venous thromboembolism (VTE) prophylaxis provided on arrival DVT prophylaxis on Lovenox 40 mg daily while inpatient Discharge planning: home Current Inpatient Medications: Current Inpatient Medications Medications (Trade) Dose Ordered Sig/Adia Route Start Time Stop Time Status Last Admin Dose Admin Ioversol (Optiray 320) 100 ml UD PRN IV 04/15/17 20:15 04/19/17 20:14 Lactated Ringer's 1,000 ml @ 200 mls/hr Q5H IV 04/15/17 23:30 05/15/17 23:29 04/16/17 10:07 200 MLS/HR Enoxaparin Sodium (Lovenox Inj) 40 mg Q24H SQ 04/16/17 09:00 05/16/17 08:59 Lorazepam (Ativan Inj) PRN Dosing -Active Protocol Q1H PRN IV 04/16/17 01:00 05/16/17 00:59 Nicotine (Nicoderm Cq 21MG Patch) 1 patch QAM TD 04/16/17 08:00 05/16/17 08:59 04/16/17 07:39 1 PATCH Oxycodone/ Acetaminophen (Percocet 5-325mg Tab) 1 tab Q6H PRN PO 04/16/17 01:00 04/30/17 00:59 04/16/17 02:12 1 TAB Multivitamins (Multivitamin Tab) 1 tab QAM PO 04/16/17 08:00 05/16/17 08:59 04/16/17 07:38 1 TAB Folic Acid (Folvite Tab) 1 mg QAM PO 04/16/17 08:00 05/16/17 08:59 04/16/17 07:39 1 MG Thiamine HCl (Vitamin B-1 Tab) 100 mg QAM PO 04/17/17 08:00 05/17/17 08:59 Miscellaneous (Remove Nicoderm Patch) 1 ea HS N/A 04/16/17 21:00 05/16/17 20:59 Gabapentin (Neurontin Tab) 600 mg Q6H PO 04/16/17 08:00 04/16/17 14:01 04/16/17 07:38 600 MG Gabapentin (Neurontin Tab) 600 mg Q8H PO 04/16/17 22:00 04/17/17 14:01 Gabapentin (Neurontin Tab) 600 mg Q12H PO 04/18/17 02:00 04/18/17 14:01 Gabapentin (Neurontin Tab) 600 mg Q24H PO 04/19/17 14:00 04/19/17 14:01 Montelukast Sodium (Singulair Tab) 10 mg DAILY PO 04/16/17 08:00 05/16/17 07:59 04/16/17 07:38 10 MG Enalapril Maleate (Vasotec Tab) 20 mg QAM PO 04/16/17 08:00 05/16/17 07:59 04/16/17 07:39 20 MG Ondansetron HCl (Zofran Odt) 4 mg Q6H PRN PO 04/16/17 10:45 05/16/17 10:44 UNV
[2017-04-16 11:06] VITALS: BP 158/102; PULSE 72; TEMP 36.7; O2SAT 95
[2017-04-16 12:37] VITALS: BP 151/99; PULSE 85
--- NOTE | 2017-04-16 13:26 | Gastrointestinal Consultation ---
Gastrointestinal Consultation Date of Consultation: Apr 16, 2017 Attending Physician: Jimmy Pascual Consulting Physician: Eric Espino Reason for Consultation: Pancreatitis History of Present Illness Patient is a 62 year old male w PMHx of tobacco, ETOH abuses (said drinks too much), arthritis, HTN, who presented to ED w c/o abd pain across upper abd area x 1 week. When he drank coffee prior to admission, his pain is escalated and experienced chest pain thus family urged him to go to ED for eval. He has no associated n/v, changes in his bowel habits. Upon eval, his labs showed normal CBC, CMP grossly normal, LFTs normal, Lipase over 4K, now improved to 1760. CXR showed atelectasis, CT abd/pelvis, u/s showed no gallstones, or biliary dilation. CT showed peripancreatic edema. He had been given LR IVF, kept NPO. He reports no longer abd pain, n/v today. Wants to go home. Past Medical/Surgical History Medical Problems: (1) Pancreatitis Status: Acute (2) Substernal precordial chest pain Status: Acute Past Medical History: See HPI Family History No pertinent family history Social History Smoking Status: Current Every Day Smoker Alcohol Use: heavy Drug Use: none Marital Status: Housing Status: lives with family Allergies Coded Allergies: No Known Allergies (Verified , 04/15/17) Current Medications Home Meds and Scripts Medications Dose Route/Sig Max Daily Dose Days Date Category Advil (Ibuprofen) 200 Mg Tab 200-600 Mg PO Q4H PRN 04/15/17 Reported Montelukast Sodium (Montelukast Sod) 10 Mg Tab 10 Mg PO DAILY 11/10/16 Reported Hctz (Hydrochlorothiazide) 12.5 Mg Cap 1 Tab PO DAILY 11/10/16 Reported Lotensin (Benazepril HCl) 20 Mg Tab 20 Mg PO QAM 07/13/15 Reported Review of Systems Constitutional: No fever, No chills Respiratory: No cough, No shortness of breath Cardiac: No chest pain Abdomen: No pain, No nausea, No vomiting, No diarrhea, No constipation, No GI bleeding Physical Exam Date Time Temp Pulse Resp B/P (MAP) Pulse Ox O2 Delivery O2 Flow Rate FiO2 04/16/17 12:37 85 151/99 (116) 04/16/17 11:06 36.7 72 18 158/102 (120) 95 Room Air 04/16/17 08:00 Room Air 04/16/17 07:03 36.6 64 18 164/106 (125) 94 Room Air 04/16/17 05:00 36.5 64 18 150/100 (117) 91 Room Air 04/16/17 02:10 36.7 71 18 146/81 93 Room Air 04/16/17 00:56 86 18 142/80 96 04/16/17 00:02 75 18 144/83 93 Room Air 04/15/17 21:55 86 20 157/86 96 Room Air 04/15/17 19:47 37.0 95 20 165/108 94 Room Air General Appearance: WD/WN, no apparent distress, + obese Eyes: normal inspection, PERRL, EOMI Neck: supple, no JVD, trachea midline Respiratory/Chest: normal breath sounds, no respiratory distress, no accessory muscle use Cardiovascular: regular rate, rhythm, no gallop, no murmur Abdomen: normal bowel sounds, non tender, soft Extremities: normal inspection, no pedal edema, no calf tenderness Neurologic/Psych: alert, normal mood/affect, oriented x 3 Skin: normal color, no jaundice, no rash Laboratory Results Last 24 Hours Test 04/15/17 20:30 04/15/17 21:55 04/16/17 06:45 White Blood Count 10.28 K/uL 8.95 K/uL Red Blood Count 5.15 M/uL 4.93 M/uL Hemoglobin 16.0 g/dL 15.4 g/dL Hematocrit 47.3 % 45.2 % Mean Corpuscular Volume 91.8 fL 91.7 fL Mean Corpuscular Hemoglobin 31.1 pg 31.2 pg Mean Corpuscular Hemoglobin Concent 33.8 g/dl 34.1 g/dl Platelet Count 166 K/uL 141 K/uL Mean Platelet Volume 10.9 fL 10.6 fL Neutrophils (%) (Auto) 70.0 % 63.0 % Lymphocytes (%) (Auto) 20.6 % 26.0 % Monocytes (%) (Auto) 6.4 % 7.7 % Eosinophils (%) (Auto) 2.4 % 2.7 % Basophils (%) (Auto) 0.3 % 0.3 % Neutrophils # (Auto) 7.19 K/uL 5.63 K/uL Lymphocytes # (Auto) 2.12 K/uL 2.33 K/uL Monocytes # (Auto) 0.66 K/uL 0.69 K/uL Eosinophils # (Auto) 0.25 K/uL 0.24 K/uL Basophils # (Auto) 0.03 K/uL 0.03 K/uL RDW Standard Deviation 44.9 fL 45.4 fL RDW Coefficient of Variation 13.4 % 13.6 % Immature Granulocyte % (Auto) 0.3 % 0.3 % Immature Granulocyte # (Auto) 0.03 K/uL 0.03 K/uL Prothrombin Time 10.0 SECONDS Prothromb Time International Ratio 0.9 Activated Partial Thromboplast Time 26.2 SECONDS Partial Thromboplastin Ratio 1.0 Sodium Level 137 mmol/L 140 mmol/L Potassium Level 3.8 mmol/L 3.8 mmol/L Chloride Level 101 mmol/L 104 mmol/L Carbon Dioxide Level 30 mmol/L 32 mmol/L Anion Gap 6.0 mmol/L 4.0 mmol/L Blood Urea Nitrogen 15 mg/dl 12 mg/dl Creatinine 0.89 mg/dl 0.79 mg/dl Est Creatinine Clear Calc Drug Dose 108.2 ml/min 122.0 ml/min Estimated GFR () 106.2 111.5 Estimated GFR (Non- 91.6 96.2 BUN/Creatinine Ratio 17.3 15.7 Random Glucose 174 mg/dl 97 mg/dl Estimated Average Glucose 128 mg/dl Hemoglobin A1c 6.1 % Calcium Level 9.5 mg/dl 9.4 mg/dl Magnesium Level 2.3 mg/dl Total Bilirubin 0.2 mg/dl 0.4 mg/dl Aspartate Amino Transf (AST/SGOT) 14 U/L 10 U/L Alanine Aminotransferase (ALT/SGPT) 21 U/L 19 U/L Alkaline Phosphatase 70 U/L 62 U/L Total Protein 6.6 gm/dl 6.3 gm/dl Albumin 3.5 gm/dl 3.3 gm/dl Globulin 3.1 gm/dl 3.0 gm/dl Albumin/Globulin Ratio 1.1 1.1 Lipase 4046 U/L 1760 U/L Urine Color YELLOW Urine Appearance CLEAR Urine pH 7.5 Urine Specific [place] 1.013 Urine Protein NEG Urine Glucose (UA) NEG Urine Ketones NEG Urine Occult Blood NEG Urine Nitrite NEG Urine Bilirubin NEG Urine Urobilinogen NEG Urine Leukocyte Esterase NEG Ethyl Alcohol mg/dL < 3.0 mg/dl Impression Patient is a 62 year old male admitted w pancreatitis; likely from ETOH and tobacco abuses. Lipase decreasing, his abd pain has resolved. Plan - Continue LR @ 200ml/hr - Slowly advance to low fat diet - Encouraged to quit ETOH/tobacco uses. - He has been advised to stay at least one more night for IVF before going home tomorrow. - Symptomatic management otherwise. I have seen, examined, and agree with the plan as outlined above by LUCA Lorenz. -uncomplicated pancreatitis, advance diet slowly -Etoh seems to be culprit
[2017-04-16] MEDS ORDERED: ACET500T57 PO (14:54)
--- NOTE | 2017-04-16 15:04 | Discharge Instructions ---
Discharge Instructions Date of Service Apr 16, 2017. Admission Reason for Admission: Pancreatitis Discharge Discharge Diagnosis / Problem: pancreatitis Discharge Goals Goal(s): Decrease discomfort Activity Recommendations Activity Limitations: resume your previous activity Lifting Limitations: none Exercise/Sports Limitations: none . Instructions / Follow-Up Instructions / Follow-Up -follow up appointment with Dr. Dugan at [facility] on April 22, 2017 at 12: 55 PM -avoid alcohol, limit fatty foods from diet -if abdominal symptoms increase, please seek emergency medical attention Current Hospital Diet Patient's current hospital diet: Low Fat Diet Discharge Diet Recommended Diet: AHA Diet (Heart Healthy), Low Fat Diet (reduce fat intake for 1 week) Fluid Restriction: None Procedures Procedures Performed: CT abdomen with findings of inflammation of the pancreas Ultrasound of the Gallbladder did not find any evidence for gallstones Pending Studies Studies pending at discharge: no Laboratory Results Hemoglobin A1c Test 04/15/17 20:30 Range/Units Estimated Average Glucose 128 mg/dl Hemoglobin A1c 6.1 H 4.5-5.6 % Work Instructions Lifting Limitations: none Medical Emergencies . Who to Call and When: Medical Emergencies: If at any time you feel your situation is an emergency, please call 911 immediately. . Non-Emergent Contact Non-Emergency issues call your: Primary Care Provider (Dr. Dugan) Call Non-Emergent contact if: you have a fever, your pain is not controlled . . "Provider Documentation" section prepared by Jimmy Pascual. . VTE Core Measure Inpt VTE Proph given/why not?: Enoxaparin (Lovenox)SQ
[2017-04-16 15:13] VITALS: BP 151/99; PULSE 85; TEMP 36.7; O2SAT 95
--- NOTE | 2017-04-16 15:22 | Discharge Summary ---
Discharge Summary Date of Service Apr 16, 2017. Discharge Summary Admission Date: Apr 16, 2017 at 00:13 Discharge Date: Apr 16, 2017 Discharge Disposition: Home Principal Diagnosis: pancreatitis Secondary Diagnoses/Problems: hypertension Procedures: CT abdomen, ultrasound gallbladder Medication Reconciliation New Medications: Acetaminophen (Acetaminophen) 500 Mg Tab 1 TAB PO Q6 PRN for Pain for 15 Days, #60 TAB Continued Medications: Benazepril (Lotensin) 20 Mg Tab 20 MG PO QAM, TAB Hydrochlorothiazide (Hctz) 12.5 Mg Cap 1 TAB PO DAILY, #30 Admission Information HPI (per Admitting provider): On admission HISTORY OF PRESENT ILLNESS: Significant for hypertension, ongoing tobacco abuse , arthritis. Recent confinement last July 2015 under orthopedic service for the left knee surgery. One week history of epigastric discomfort, upper abdominal discomfort, achy. No radiation, no nausea, no vomiting, just the patient is urinating a lot. Admits to daily alcohol intake. He does not think he is abusing it though. Admits that sometimes can be excessive. Physical Exam (per Admitting): on admission PHYSICAL EXAMINATION: VITAL SIGNS: Blood pressure was noted to be 165/____, later ____/82, pulse is 70, RR 18, ____ sats 93 on room air. GENERAL: Noted to be obese, slightly uncomfortable, in no acute respiratory distress. SKIN: Normal color. HEENT: [place] palpable conjunctivae. Dry mucosa. NECK: Short neck. No ____. CHEST: Clear to auscultation. ABDOMEN: Some distention. No overt tenderness. EXTREMITIES: No edema. NEUROLOGIC: No gross focality. Hospital Course (1) Pancreatitis diagnosis of acute pancreatitis on imaging, and elevated lipase -lipase and wbc downtrending -patient afebrile -gallbladder ultrasound without evidence for gallstones -possibly etiology of pancreatitis from resolved gallstone vs etoh use -patient doing well overnight on pain medications, antiemetics and IV hydration , and able to drink water and swallow ice chips without exacerbating abdominal discomfort or have any vomiting -will advance diet to solid low fat diet, IV pain medications and antiemetics switched to PO (2) Hypertension -patient on NIYAH inhibitor since admission -upon discharge, patient to continue home medication of benazepril -will restart patient back on home medication of HCTZ (3) Venous thromboembolism (VTE) prophylaxis provided on arrival [facility] 62 year old M with PMH of HTN, drinks 1 shot of liquor a day, no prior abdominal history, presents to ED with 1 week of abdominal pain. Found on imaging studies to have pancreatitis and elevated lipase on admission. Subsequent morning labs with lipase and WBC downtrending. Patient has been afebrile. He was given pain medications, IV hydration, and able to advance diet from liquids to solid food. Patient's blood pressure stable and he also received antihypertensives and DVT prophylaxis with Lovenox. After patient was admitted overnight, the abdominal pain was controlled by the morning time. He was able to tolerate solid foods for lunch and required minimal narcotic medications since the morning of 04/16/2017. Patient was seen by gastroenterology. No acute interventions at this time. Patient had been recommended to stay for additional monitoring but he reports that he feels much better and the abdominal physical exam is benign. He has been counseled to seek medical attention if he returns home and experiences acute abdominal pain. Physical Exam on discharge day 04/16/2017 General-no acute distress, speaking comfortably on room air, ambulatory without assistance Eyes-extraocular movements intact, no jaundice, no changes in vision ENT-no oral or nasal exudates, no tongue fasciculations Neck- supple, no JVD Lungs- clear to auscultation bilaterally, no accessory muscle used Heart- regular rate and rhythm Abdomen- truncal obesity, nontender to palpation, + bowel sounds Extremities- strength 5/5 throughout, no tremors Neuro- AO x 3, no focal neurological deficits Total time spent on discharge = This includes examination of the patient, discharge planning, medication reconciliation, and communication with other providers. Discharge Instructions -follow up appointment with Dr. Dugan at [facility] on April 22, 2017 at 12: 55PM -avoid alcohol, limit fatty foods from diet -if abdominal symptoms worsen please seek emergent medical care Problem Qualifiers (1) Pancreatitis: Chronicity: acute Pancreatitis type: alcohol induced Acute pancreatitis complication: no infection or necrosis Qualified Codes: K85.20 - Alcohol induced acute pancreatitis without necrosis or infection (2) Hypertension: Hypertension type: essential hypertension Qualified Codes: I10 - Essential ( primary) hypertension
[2017-04-16] MEDS ORDERED: GABAPENTIN 600MG Q8H DOSE PO SCH (22:00)
[2017-04-17] MEDS ORDERED: THIAMINE HCL 100 MG TAB PO SCH (08:00)
[2017-04-18] MEDS ORDERED: GABAPENTIN 600MG Q12H DOSE PO SCH (02:00)
[2017-04-19] MEDS ORDERED: GABAPENTIN 600MG Q24H DOSE PO SCH (14:00)
== END 2017-04-16 18:01 | disposition home or self-care (01) | DRG 440 ==
LOC: C.EDB 19:47 → C.MS4W 04-16 00:13 → ENRESERV 04-16 00:46 → C.MS4W 04-16 07:04
PROVIDERS: ADMIT Internal Medicine; ATTEND Hospitalist
DX: K85.20 Alcohol induced acute pancreatitis without necrosis or infection (principal); I10 Essential (primary) hypertension; F17.200 Nicotine dependence, unspecified, uncomplicated; R73.9 Hyperglycemia, unspecified

== ENCOUNTER 2020-12-21 13:04 | Observation (INO) ==
[2020-12-21] MEDS ORDERED: OPTIRAY 350 500ml IV ONE (13:13)
--- NOTE | 2020-12-21 13:17 | CT Scan Report ---
CT head/brain wo con CLINICAL HISTORY: Stroke Alert RIGHT-SIDED WEAKNESS. POSSIBLE ACUTE STROKE COMPARISON STUDY: MRI the brain dated 09/02/2010, CT scan dated 09/02/2010 TECHNIQUE: Axial CT of the brain is performed from the vertex to the skull base. IV contrast was not administered for this examination. A dose lowering technique was utilized adhering to the principles of ALARA. CT DOSE: 614.27 mGy.cm FINDINGS: No intra or extra-axial mass lesions are visualized. There is no CT evidence of acute cortical infarc tion. There is no evidence of midline shift. There is no acute hemorrhage. No calvarial fractures ar e visualized. There is no evidence of pathologic ventricular dilatation. There is no evidence of acute sinusitis IMPRESSION: No acute intracranial findings ACT 112: Negative or not required by law. Electronically signed by: Viraj Daniel M.D. 12/21/2020 1:15 PM
--- NOTE | 2020-12-21 13:26 | XRay Report ---
SINGLE VIEW CHEST CLINICAL HISTORY: Strokelike symptoms. FINDINGS: 2 AP, portable, upright chest radiographs are compared to study dated 04/15/2017. The examina tion is degraded by portable technique and patient rotation. The heart is enlarged noting atheroscler otic calcification of the thoracic aorta. The pulmonary vasculature is noncongested. Chronic addition al thickening is similar to previous. There is bibasilar scarring/atelectasis. No airspace consolidat ion or large pleural effusion is identified. No pneumothorax is seen. The skeletal structures are ost eopenic. The bony thorax is grossly intact. Fusion hardware is noted in the lower cervical spine. IMPRESSION: Cardiomegaly with no active disease in the chest. ACT 112: Negative or not required by law. Electronically signed by: Mejia Weston M.D. 12/21/2020 1:24 PM
--- NOTE | 2020-12-21 13:33 | CT Scan Report ---
CT angio neck with con CLINICAL HISTORY: Right-sided weakness. Suspected acute stroke. COMPARISON STUDY: No previous studies for comparison. TECHNIQUE: CT angiography was performed from the aortic arch to the skull base. MIP imaging was perfo rmed. The patient was scanned in a dynamic helical fashion during intravenous administration of 107 c c of Optiray. A dose lowering technique was utilized adhering to the principles of ALARA. CT DOSE: Technique: CT angiogram of the carotid and vertebral arteries was obtained using intravenous contrast and 3-D reconstruction. NASCET criteria was utilized. Findings: The right carotid revealed no evidence of aneurysm and no evidence of dissection. There is no evidenc e of hemodynamic significant stenosis. The left carotid revealed no evidence of hemodynamic significant stenosis. There is no evidence of an eurysm. There is no evidence of dissection. There is no evidence of hemodynamically significant vertebral stenosis. There is no evidence of verte bral dissection. IMPRESSION: No evidence of hemodynamically significant carotid or vertebral artery stenosis. No evidence of disse ction. ACT 112: Negative or not required by law. Electronically signed by: Viraj Daniel M.D. 12/21/2020 1:31 PM
--- NOTE | 2020-12-21 13:34 | CT Scan Report ---
CTA ANGIOGRAPHY OF THE HEAD CLINICAL HISTORY: Stroke alert. Right facial droop. COMPARISON STUDY: MRI of the brain September 02, 2010. TECHNIQUE: Helical axial images of the head were obtained following uneventful intravenous administr ation of 107 cc of Optiray. Sagittal and coronal reconstructions were viewed as well as maximal inten sity projections on an independent 3-D workstation. Automated exposure control was utilized for the study. A dose lowering technique was utilized adhering to the principles of ALARA. CT DOSE: 761.49 mGy.cm FINDINGS: No acute intracranial hemorrhage, midline shift or mass effect is present. Ventricular syst em is normal. Basilar cisterns are patent. There are no extra-axial collections. The bilateral M1, M2 , A1 and A2 segments are patent. There is mild plaque within the bilateral cavernous carotids without significant stenosis. There is no central vessel occlusion. There is no intracranial aneurysm. The p osterior circulation is also intact. IMPRESSION: No central vessel occlusion. No intracranial aneurysm. ACT 112: Negative or not required by law. Electronically signed by: Selvin Gates M.D. 12/21/2020 1:32 PM
[2020-12-21 13:36] LABS: Mean Corpuscular Volume 91.1 fL (80-100); Mean Platelet Volume 11.2 fL (7.4-10.4); Platelet Count 151 K/uL (130-400); RDW Coefficient of Variation 13.1 % (11.5-14.5); RDW Standard Deviation 43.3 fL (36.4-46.3); Red Blood Count 5.16 M/uL (4.7-6.1); White Blood Count 9.36 K/uL (4.8-10.8)
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
[2020-12-21 13:46] LABS: Partial Thromboplastin Ratio 0.9; Partial Thromboplastin Time 23.4 Seconds (21.0-31.0); Prothrombin Time 10.3 Seconds (9.0-12.0)
[2020-12-21] MEDS ORDERED: ASPIRIN CHEW 324 MG PO STA (13:48)
[2020-12-21 14:02] LABS: Albumin Level 3.6 gm/dl (3.4-5.0); Calcium 8.5 mg/dl (8.5-10.1); Creatinine Clr Calc Pharmacy 104.7 ml/min; Est GFR (African American) 103.5 ml/min; Est GFR (Non-African American) 89.3 ml/min; Potassium 3.5 mmol/L (3.5-5.1)
[2020-12-21 14:05] LABS: Albumin Globulin Ratio 1.4 (0.9-2); Bilirubin,Total 0.8 mg/dl (0.2-1); Globulin 2.5 gm/dl (2.5-4.0); Total Protein 6.1 gm/dl (6.4-8.2)
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
[2020-12-21 14:44] LABS: Influenza A virus by PCR Negative (Neg); Influenza B virus by PCR Negative (Neg); RSV by PCR Negative (Neg); SARS CoV2 RNA(COVID-19) InHosp NEGATIVE (Negative)
[2020-12-21] MEDS ORDERED: PHARMACIST DISCHARGE MED REC CONSULT PRN (16:22)
[2020-12-21] MEDS ORDERED: POTASSIUM CHLORIDE 40 MEQ in SODIUM CHLORIDE 0.9% 1000ML 1,000 ML IV SCH (16:45)
[2020-12-21] MEDS: NICOTINE 21 MG/24 HR TDSY TD SCH (17:27)
[2020-12-21 18:02] LABS: Lyme Ab IgG w/WB Rflx Negative (Negative); Lyme Ab IgM w/WB Rflx Negative (Negative)
[2020-12-21] MEDS ORDERED: GADOBUTROL 65ML VIAL IV ONE (19:26)
--- NOTE | 2020-12-21 19:43 | Magnetic Resonance Report ---
MRI OF THE BRAIN COMBO CLINICAL HISTORY: Strokelike symptoms. COMPARISON STUDY: CT of the brain dated 12/21/2020. TECHNIQUE: MRI of the brain was performed utilizing various T1 and T2-weighted sequences in the axial , sagittal, and coronal planes. Contrast-enhanced sequences were acquired following the administratio n of 10 cc of Gadavist. FINDINGS: Brain parenchyma: There is a punctate focus of restricted diffusion identified in the superior aspect of the left thalamus, with corresponding abnormal signal on the FLAIR sequence. No additional foci o f restricted diffusion are identified. There is no hemorrhage or mass effect. No enhancing mass lesio n is identified on the postcontrast images. There is age-related involutional change noting mild subc ortical and periventricular microangiopathic disease. No extra-axial fluid collection is seen. The ce rebellar tonsils are normal in configuration. Ventricles, sulci, and cisterns: Prominent secondary to involutional change. Pituitary and sella: Unremarkable. Intracranial vasculature: Normal flow voids are maintained at the skull base. Orbits: The bony orbits are grossly intact. Orbital contents are normal in appearance. Sinuses and mastoids: There is evidence of previous paranasal sinus surgery. The paranasal sinuses an d mastoid air cells are clear. Calvarium: Unremarkable. Cervical cord: Partially visualized cervical spinal cord is normal in morphology and signal intensity . IMPRESSION: 1. There is a punctate focus of restricted diffusion identified in the superior left thalamus with as sociated abnormal FLAIR signal. This likely represents an acute to subacute lacunar infarct. 2. No additional foci of acute ischemia are identified. 3. There is no hemorrhage or enhancing mass lesion identified. ACT 112: Negative or not required by law. Electronically signed by: Mejia Weston M.D. 12/21/2020 7:42 PM
[2020-12-22 06:31] LABS: Basophils # (auto) 0.02 K/uL (0-0.2); Basophils % (auto) 0.3 %; Eosinophils # (auto) 0.12 K/uL (0-0.5); Eosinophils % (auto) 1.6 %; Hemoglobin 16.7 g/dL (14.0-18.0); Immature Granulocytes # (auto) 0.02 K/uL (0.00-0.02); Immature Granulocytes % (auto) 0.3 %; Lymphocytes # (auto) 2.43 K/uL (1.2-3.4); Lymphocytes % (auto) 32.2 %; Mean Corpuscular Hemoglobin 31.1 pg (25-34); Mean Corpuscular Hgb Conc 33.4 g/dL (32-36); Mean Corpuscular Volume 93.1 fL (80-100); Mean Platelet Volume 11.6 fL (7.4-10.4); Neutrophils # (auto) 4.35 K/uL (1.4-6.5); Neutrophils % (auto) 57.6 %; Platelet Count 155 K/uL (130-400); RDW Coefficient of Variation 13.4 % (11.5-14.5); RDW Standard Deviation 45.7 fL (36.4-46.3); Red Blood Count 5.37 M/uL (4.7-6.1); White Blood Count 7.54 K/uL (4.8-10.8)
[2020-12-22 07:08] LABS: BUN Creatinine Ratio 20.8 (10-20); Creatinine Clr Calc Pharmacy 104.3 ml/min; Est GFR (Non-African American) 90.6 ml/min; Magnesium 2.2 mg/dl (1.8-2.4); Potassium 4.4 mmol/L (3.5-5.1)
[2020-12-22] MEDS: NICOTINE 21 MG/24 HR TDSY TD SCH (07:29)
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
[2020-12-22 08:44] LABS: Estimated Average Glucose 171 mg/dl; Hemoglobin A1C 7.6 % (4.5-5.6)
[2020-12-22] MEDS ORDERED: ASPIRIN 81 MG ECTAB PO SCH (09:00)
[2020-12-22] MEDS ORDERED: LORATADINE 10 MG TAB PO SCH (09:00)
[2020-12-22] MEDS ORDERED: THIAMINE HCL 100 MG TAB PO SCH (09:00)
[2020-12-22] MEDS ORDERED: FOLIC ACID 400 MCG TAB PO SCH (09:00)
[2020-12-22] MEDS ORDERED: ATORVASTATIN 40 MG TAB PO SCH (09:00)
[2020-12-22] MEDS ORDERED: CLOPIDOGREL BISULFATE 75 MG TAB PO SCH (09:00)
[2020-12-22] MEDS ORDERED: MULTIVITAMIN TAB PO SCH (09:00)
[2020-12-22] MEDS ORDERED: STROKE PATIENT DISCHARGE STA (10:44)
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
--- NOTE | 2020-12-22 22:18 | Electrocardiogram Report ---
Test Reason : Blood Pressure : / mmHG Vent. Rate : 097 BPM Atrial Rate : 097 BPM P-R Int : 126 ms QRS Dur : 108 ms QT Int : 366 ms P-R-T Axes : 009 019 050 degrees QTc Int : 464 ms Poor data quality, interpretation may be adversely affected Sinus rhythm with occasional Premature ventricular complexes Nonspecific ST and T wave abnormality Abnormal ECG When compared with ECG of 15-MAR-2020 12:54, Premature ventricular complexes are now Present Confirmed by Kody Le ([id number]) on 12/22/2020 10:17:41 PM Referred By: Confirmed By:Kody Le
--- NOTE | 2020-12-22 22:49 | Electrocardiogram Report ---
Test Reason : Blood Pressure : / mmHG Vent. Rate : 067 BPM Atrial Rate : 067 BPM P-R Int : 138 ms QRS Dur : 104 ms QT Int : 422 ms P-R-T Axes : 025 024 049 degrees QTc Int : 445 ms Sinus rhythm with occasional Premature ventricular complexes Otherwise normal ECG When compared with ECG of 21-DEC-2020 13:25, No significant change Confirmed by Kody Le ([id number]) on 12/22/2020 10:49:00 PM Referred By: REFERRED SELF Confirmed By:Kody Le
== END 2020-12-22 11:15 | disposition home or self-care (01) ==
LOC: 2S 13:04 → ED 13:04 → SUATTDRO 14:16 → 2S 16:03
DX: R29.701 NIHSS score 1; Z79.899 Other long term (current) drug therapy; E66.9 Obesity, unspecified; F17.210 Nicotine dependence, cigarettes, uncomplicated; Z68.32 Body mass index [BMI] 32.0-32.9, adult; E78.5 Hyperlipidemia, unspecified; I10 Essential (primary) hypertension; I63.81 Other cerebral infarction due to occlusion or stenosis of small artery; Z20.822 Contact with and (suspected) exposure to COVID-19